=== PATIENT | female | born 1940 | race Two or more races ===

== ENCOUNTER 2017-04-12 05:44 | Inpatient (IN) | payer OTHER, MEDICARE ==
[~2017-04-12] VITALS: Ht 154.9 cm; Wt 81.2 kg
--- NOTE | 2017-04-12 09:35 | NUR ---
JULIO GATICA RECEIVED PATIENT IN ROOM 306-2. PATIENT TRANSFERRED FROM [facility] VIA AMBULANCE. PATIENT ADMITTED FOR SEPSIS. PATIENT DENIES SOB. PATIENT DENIES CP. PATIENT HAS MILD FEVER 99.9. BP 139/83, HR 101, RR 20, O2 98% ON ROOM 2L NC. IV ACCESS IN THE LEFT FOREARM. PATENT AND INTACT. F/C IN PLACE DRAINING CLOUDY YELLOW URINE. PATIENT DENIES ANY PAIN. RESPIRATIONS EVEN AND UNLABORED. NO ACUTE DISTRESS NOTED. BED LOCKED IN THE LOWEST POSITION WITH SIDE RAILS UP X2. HOB ELEVATED. CALL LIGHT WITHIN REACH. WILL CONTINUE TO MONITOR ASSESS AND EDUCATE PATIENT DURING SHIFT.
[2017-04-12 09:45] VITALS: BP 139/83
[2017-04-12 09:51] VITALS: BP 139/83
[2017-04-12 12:00] VITALS: BP 149/90
[2017-04-12] MEDS ORDERED: MAG HYDROX/AL HYDROX/SIMETH 30 ML UDC PO PRN (15:00)
[2017-04-12] MEDS ORDERED: HYDROCODONE/APAP 5/325MG 1 EACH TABLET PO PRN (15:00)
[2017-04-12] MEDS ORDERED: Z GUARD REMEDY 2 OZ OINT TP PRN (15:00)
[2017-04-12] MEDS ORDERED: MAGNESIUM HYDROXIDE 30 ML UDC PO PRN (15:00)
[2017-04-12] MEDS ORDERED: ONDANSETRON HCL/PF 4 MG/2 ML VIAL IVP PRN (15:00)
[2017-04-12] MEDS: IV NS 0.9% 1,000 ML IV PRN (15:43)
[2017-04-12 15:58] LABS: BASOPHILS % (AUTO) 0.5 % (0.0-2.0); EOSINOPHILS % (AUTO) 0.5 % (0.0-6.0); HEMATOCRIT 43 % (33-45); LYMPHOCYTES # (AUTO) 2.8 /CMM (0.8-4.8); LYMPHOCYTES % (AUTO) 30.8 % (20.0-44.0); MEAN CORPUSCULAR HEMOGLOBIN 28 PG (26.0-33.0); MEAN CORPUSCULAR HGB CONC 33 g/dl (31.0-36.0); MEAN CORPUSCULAR VOLUME 86 fL (82-100); MONOCYTES # (AUTO) 0.5 /CMM (0.1-1.30); MONOCYTES % (AUTO) 5.8 % (2.0-12.0); NEUTROPHILS # (AUTO) 5.6 /CMM (1.8-8.9); NEUTROPHILS % (AUTO) 62.4 % (43.0-81.0); PLATELET COUNT (AUTO) 203 /CMM (150-450); RED BLOOD CELL COUNT(AUTO) 4.98 MIL/uL (4.0-5.2)
[2017-04-12 16:00] VITALS: BP 132/71
[2017-04-12 16:33] LABS: CALCIUM, SERUM 8.9 mg/dL (8.5-10.1); CARBON DIOXIDE 28 mmol/L (21-32); CHLORIDE 100 mmol/L (98-107); CREATININE 0.6 mg/dL (0.6-1.3); GLUCOSE 127 mg/dL (74-106); POTASSIUM 3.7 mmol/L (3.5-5.1); SODIUM SERUM 137 mmol/L (136-145); UREA NITROGEN, BLOOD 6 mg/dL (7-18)
[2017-04-12 16:39] LABS: ALANINE AMINOTRANSFERASE 101 U/L (12-78); ALBUMIN 3.2 g/dL (3.4-5.0); ALKALINE PHOSPHATASE 102 U/L (46-116); ASPARTATE AMINOTRANSFERASE 103 U/L (15-37); BILIRUBIN,DIRECT 0.1 mg/dL (0.0-0.2); BILIRUBIN,TOTAL 0.5 mg/dL (0.2-1.0); MAGNESIUM 1.7 mg/dL (1.8-2.4)
[2017-04-12 16:47] LABS: THYROID STIMULATING HORMONE 1.907 uIU/mL (0.358-3.74)
[2017-04-12 17:30] LABS: INR 0.94 (0.87-1.13)
--- NOTE | 2017-04-12 19:30 | NUR ---
RN OPENING NOTES Receievd patient in bed, awake an alert, no apparent distress noted. Family at bedside, informed family and patient that she will have an ultrasound tonight on her right breast, patient and family agreed. Explained the procedure, verbalized understanding. No concerns at this time. Will continue to monitor.
--- NOTE | 2017-04-12 19:42 | NUR ---
RN CLOSING NOTES PATIENT RESTING COMFORTABLY WITH EYES CLOSED. PATIENT EASILY AROUSABLE. PATIENT IS KOREAN SPEAKING ONLY. TRANSLATION PROVIDED BY FAMILY. PATIENT IN NO ACUTE DISTRESS. PATIENT ON 2L SATURATING ADEQUATELY. RESPIRATIONS EVEN AND UNLABORED. ALL NEEDS MET DURING SHIFT. ALL MEDS GIVEN APPROPRIATE. WILL GIVEN REPORT TO NIGHT RN FOR CONTINUATION OF CARE.
[2017-04-12 20:00] VITALS: BP_SYST 122; BP_SYST 146; BP_DIAS 66; BP_DIAS 72
[2017-04-12] MEDS ORDERED: PIPERACILLIN /TAZOBACTAM 4.5 G in IV D5W 50 ML IV SCH (22:30)
[2017-04-13] VITALS: BP 128/76
[2017-04-13] MEDS: ACETAMINOPHEN 325 MG TABLET PO PRN ×3 (00:01→12:49)
[2017-04-13] MEDS ORDERED: PIPERACILLIN /TAZOBACTAM 2.25 G VIAL IV ONE (00:08)
[2017-04-13 04:00] VITALS: BP 122/66
--- NOTE | 2017-04-13 06:00 | NUR ---
RN CLOSING NOTES No significant change in condition. Patient slept comfortably. All due meds given as ordered, patient is compliant. Accucheck done, no s/s of hypo/hyperglycemia noted. Will continue to monitor.
[2017-04-13] MEDS: IV NS 0.9% 1,000 ML IV PRN ×2 (06:42→23:54)
--- NOTE | 2017-04-13 06:45 | NUR ---
RN CLOSING NOTES Patient is calm during shift, slept comfortably, no c/o pain or discomfort. Patient noted to be febrile, Tylenol 650 mg given as ordered, monitored temperature but patient continued to be febrile. Charge nurse made aware. Blood culture was done, urine specimen collected for urine culture, and MRSA swab done. Cold compress rendered. patient able to tolerate well. All due meds given, patient started on Zosyn IV. Tylenol given at around 0615 and temperature rechecked after 30 minutes, temp went down to 98.5. Endorsed. will continue to monitor. Report given to charge nurse.
--- NOTE | 2017-04-13 06:45 | NUR ---
RN CLOSING NOTES Patients
[2017-04-13 06:47] LABS: APPEARANCE,URINE CLEAR (CLEAR); BILIRUBIN,URINE NEGATIVE (NEGATIVE); BLOOD, URINE 1+ Ery/uL (NEGATIVE); COLOR,URINE YELLOW (YELLOW); KETONES,URINE NEGATIVE (NEGATIVE); LEUKOCYTE ESTERASE ,URINE NEGATIVE (NEGATIVE); NITRITE, URINE NEGATIVE (NEGATIVE); PROTEIN,URINE NEGATIVE (NEGATIVE); UGLUCOSE NEGATIVE (NEGATIVE); UROBILINOGEN,URINE 0.2 EU/dL (0.2)
[2017-04-13] MEDS: PANTOPRAZOLE 40 MG TABLET.DR PO SCH (06:51)
[2017-04-13 07:17] LABS: BASOPHILS % (AUTO) 0.3 % (0.0-2.0); EOSINOPHILS # (AUTO) 0.1 /CMM (0.0-0.7); EOSINOPHILS % (AUTO) 0.8 % (0.0-6.0); HEMATOCRIT 46 % (33-45); LYMPHOCYTES # (AUTO) 3.2 /CMM (0.8-4.8); LYMPHOCYTES % (AUTO) 34.7 % (20.0-44.0); MEAN CORPUSCULAR HEMOGLOBIN 28 PG (26.0-33.0); MEAN CORPUSCULAR HGB CONC 32 g/dl (31.0-36.0); MEAN CORPUSCULAR VOLUME 87 fL (82-100); MONOCYTES # (AUTO) 0.7 /CMM (0.1-1.30); MONOCYTES % (AUTO) 8.1 % (2.0-12.0); NEUTROPHILS # (AUTO) 5.2 /CMM (1.8-8.9); NEUTROPHILS % (AUTO) 56.1 % (43.0-81.0); PLATELET COUNT (AUTO) 191 /CMM (150-450); RDW COEFFICIENT OF VARIATION 13.7 (11.5-15.0); RED BLOOD CELL COUNT(AUTO) 5.34 MIL/uL (4.0-5.2); WHITE BLOOD COUNT (AUTO) 9.2 K/uL (4.3-11.0)
[2017-04-13 07:36] LABS: CALCIUM, SERUM 8.8 mg/dL (8.5-10.1); CARBON DIOXIDE 30 mmol/L (21-32); CHLORIDE 101 mmol/L (98-107); CREATININE 0.7 mg/dL (0.6-1.3); GLUCOSE 153 mg/dL (74-106); MAGNESIUM 1.9 mg/dL (1.8-2.4); PHOSPHORUS 3.7 mg/dL (2.5-4.9); POTASSIUM 4.1 mmol/L (3.5-5.1); SODIUM SERUM 138 mmol/L (136-145); UREA NITROGEN, BLOOD 7 mg/dL (7-18)
--- NOTE | 2017-04-13 07:51 | NUR ---
RN OPENING NOTES RECEIVED PATIENT RESTING COMFORTABLY IN BED WITH EYES OPEN. PATIENT IS AOX1 SLOVENIAN SPEAKING. NO ACUTE DISTRESS NOTED. RESPIRATIONS APPEAR EVEN AND UNLABORED. PATIENT SATURATING ADEQUATELY WITH NC @ 2L. IV ACCESS ON LFA 20G WITH NS RUNNING @ 75 ML/HR. F/C IN PLACE DRAINING CLEAR YELLOW URINE. BED LOCKED IN THE LOWEST POSITION WITH SIDE RAILS UP X2. CALL LIGHT WITHIN REACH. WILL CONTINUE TO MONITOR, ASSESS AND EDUCATE PATIENT THROUGHOUT SHIFT.
[2017-04-13 07:55] LABS: BACTERIA,URINE None seen /HPF (None Seen); SQUAMOUS EPITHELIAL CELL,UR Few /HPF (None Seen); WBC,URINE NONE SEEN /HPF (0-3)
[2017-04-13 08:00] VITALS: BP 128/69
[2017-04-13] MEDS: PIPERACILLIN /TAZOBACTAM 3.375 G in IV D5W 50 ML IV SCH ×3 (09:03→18:56)
--- NOTE | 2017-04-13 12:53 | NUR ---
RN NOTES PATIENT RUNNING FEVER. COOLING MEASURES IMPLEMENTED. TYLENOL GIVEN. ICE PACKS PLACED.
--- NOTE | 2017-04-13 15:58 | NUR ---
RN NOTES PATIENT TEMPERATURE RECHECKED. TEMPERATURE 100.9. DR. JESUS AWARE. ORDERS GIVEN FOR STAT BLOOD CULTURES. WILL CARRY OUT ORDERS. WILL CONTINUE TO IMPLEMENT COOLING MEASURES.
[2017-04-13 16:00] VITALS: BP 139/78
[2017-04-13] MEDS ORDERED: ACETYLCYSTEINE 10% 3,000 MG/30 ML VIAL PO ONE (16:30)
--- NOTE | 2017-04-13 17:53 | NUR ---
RN NOTES REQUEST FOR DR. JESUS TO HAVE PATIENT ON ACCUCHECK AND INSULIN FOR PATIENT DIABETES. MD TO FULFILL REQUEST.
--- NOTE | 2017-04-13 18:00 | NUR ---
RN NOTES CONSENT FOR CT ABDOMEN, CHEST AND PELVIS WITH AND WITHOUT CONTRAST WAS SIGNWED BY DAUGHTER AND PLACED IN CHART. PATIENT AND FAMILY AWARE OF PROCEDURE TOMORROW. PATIENT TO NPO AFTER MIDNIGHT.
--- NOTE | 2017-04-13 19:23 | NUR ---
RN CLOSING NOTES PATIENT IN STABLE CONDITION. PATIENT ON NC 2L SATURATING ADEQUATELY. PATIENT DENIES CP. DENIES PAIN. DENIES SOB. PATIENT TO HAVE PROCEDURE TOMORROW. CONSENT SIGNED. ALL NEEDS MET. ALL MEDS GIVEN APPROPRIATE. COOLING MEASURES IMPLEMENTED. PATIENT PLAN OF CARE DISCUSSED WITH MD. FAMILY AWARE. PATIENT TO BE NPO AFTER MIDNIGHT. RESPIRATION EVEN AND UNLABORED. NO ACUTE DISTRESS NOTED. WILL ENDORSE TO NIGHT RN FOR ALESSANDRA.
--- NOTE | 2017-04-13 19:45 | NUR ---
MS GYPSY INITIAL NOTES SEEN PT AFTER GOT REPORT FROM AM NURSE. PT STILL EATING WITH THE HELPED OF HER DAUGHTER , EDUCATE HER REGARDING ASPIRATION PRECAUTION. PT ON SITTING POSITION AND FEEDING HER SLOWLY . PT ATE WELL NO ASPIRATION NOTED AT THIS TIME, FAMILY ALSO AWARE THAT PT NPO BY 12 MN BECAUSE OF HER CT TEST CECELIA, CONSENT SIGNED. IVF NS AT 75 ML/HR ON HER LEFT FOREARM PATENT AND INTACT. PLACE ON ARM SLEEVE TO PROTECT PT FROM PULLING OUT, FAMILY AWARE. JORGE TO GRAVITY WITH CLEAR YELLOW OUTPUT NOTED. KEPT HER WARM AND COMFORTABLE AT ALL TIMES. BED ALARM SET FOR PT SAFETY.
[2017-04-13 20:00] VITALS: BP 155/80
--- NOTE | 2017-04-14 | NUR ---
MS DENTAL RECEPTIONIST NOTES CHECKED PT SHE'S SLEEPING COMFORTABLY IN BED WITHOUT ANY ACUTE DISTRESS NOTED. ZOSYN IVP ABG HUNG BY NURSE BRIDGER ORDERED. KEPT HER WARM AND COMFORTABLE AT ALL TIMES. WILL CONTINUE TO MONITOR.
[2017-04-14] MEDS: PIPERACILLIN /TAZOBACTAM 3.375 G in IV D5W 50 ML IV SCH ×5 (00:07→23:14)
--- NOTE | 2017-04-14 07:09 | NUR ---
MS PATTERN ROOM ATTENDANT CLOSING NOTES PT AWAKE AND QUIET WITH IVF STILL INFUSING. STABLE ADRIAN THE NIGHT AND SLEPT WELL. NO SIGNS OF ANY ACUTE DISTRESS NOTED THE ENTIRE SHIFT. RESPIRATION EVEN AND NON-LABORED,. MORNING CARE ALSO DONE. ALL DUE MEDS GIVEN AND ALL NEEDS MET. KEPT HER WARM AND COMFORTABLE AT ALL TIMES. BED ALARM SET FOR SAFETY. ENDORSE TO AM NURSE FOR CONTINUITY OF CARE. CALL LIGHT AT REACH.
[2017-04-14 07:10] LABS: BASOPHILS % (AUTO) 0.5 % (0.0-2.0); EOSINOPHILS # (AUTO) 0.1 /CMM (0.0-0.7); EOSINOPHILS % (AUTO) 0.8 % (0.0-6.0); HEMATOCRIT 38 % (33-45); HEMOGLOBIN 12.5 g/dL (11.5-14.8); LYMPHOCYTES # (AUTO) 3.1 /CMM (0.8-4.8); LYMPHOCYTES % (AUTO) 31.3 % (20.0-44.0); MEAN CORPUSCULAR HEMOGLOBIN 28 PG (26.0-33.0); MEAN CORPUSCULAR HGB CONC 33 g/dl (31.0-36.0); MEAN CORPUSCULAR VOLUME 86 fL (82-100); MONOCYTES # (AUTO) 0.7 /CMM (0.1-1.30); MONOCYTES % (AUTO) 7.5 % (2.0-12.0); NEUTROPHILS # (AUTO) 5.9 /CMM (1.8-8.9); NEUTROPHILS % (AUTO) 59.9 % (43.0-81.0); PLATELET COUNT (AUTO) 222 /CMM (150-450); RDW COEFFICIENT OF VARIATION 13.7 (11.5-15.0); RED BLOOD CELL COUNT(AUTO) 4.41 MIL/uL (4.0-5.2); WHITE BLOOD COUNT (AUTO) 9.9 K/uL (4.3-11.0)
[2017-04-14 07:24] LABS: CARBON DIOXIDE 29 mmol/L (21-32); CHLORIDE 98 mmol/L (98-107); CREATININE 0.7 mg/dL (0.6-1.3); GLUCOSE 176 mg/dL (74-106); IRON, SERUM 64 ug/dl (50-175); MAGNESIUM 1.7 mg/dL (1.8-2.4); PHOSPHORUS 2.8 mg/dL (2.5-4.9); POTASSIUM 3.9 mmol/L (3.5-5.1); SODIUM SERUM 132 mmol/L (136-145); TOTAL IRON BINDING CAPACITY 268 ug/dl (250-450); UREA NITROGEN, BLOOD 9 mg/dL (7-18)
[2017-04-14 07:34] LABS: FERRITIN 67 ng/mL (8-388)
--- NOTE | 2017-04-14 07:58 | NUR ---
MS/RN OPENING NOTE PATIENT RECEIVED IN BED, AWAKE IN STABLE CONDITION. ALERT AND ORIENTED TIMES 1. NON VERBAL. URDU UNDERSTANDING. NO SIGNS OF ACUTE DISTRESS. NO COMPLAIN OF PAIN OR DISCOMFORT. PATIENT NPO SECONDARY TO CT OF ABDOMEN TODAY. ALL NEEDS ATTENDED TO. CALL LIGHT WITHIN REACH. WILL CONTINUE TO MONITOR TO ENSURE SAFETY.
[2017-04-14 08:00] VITALS: BP 124/79
[2017-04-14] MEDS ORDERED: IOHEXOL-300 100 ML VIAL IV ONE ×4 (08:14)
[2017-04-14] MEDS ORDERED: IV NS 0.9% 250 ML IV ONE ×4 (08:14)
[2017-04-14] MEDS ORDERED: CT SWABBABLE VALVE TRANS SET 1 EA INFUS.SET MC ONE ×4 (08:14)
[2017-04-14] MEDS: PANTOPRAZOLE 40 MG TABLET.DR PO SCH (08:43)
[2017-04-14] MEDS: ACETAMINOPHEN 325 MG TABLET PO PRN ×3 (08:50→22:55)
[2017-04-14] MEDS: Magnesium 1GM/D5W 100ML PREMIX 100 ML IV SCH ×3 (11:43→13:54)
[2017-04-14] MEDS ORDERED: ACYCLOVIR IV 1 GM in IV D5W 250 ML IV SCH (14:00)
[2017-04-14] MEDS ORDERED: FEE PK DOSING 1 MIN EA MC ONE (15:06)
[2017-04-14 16:00] VITALS: BP 116/68
[2017-04-14] MEDS: ACYCLOVIR IV 500 MG in IV D5W 100 ML IV SCH (16:46)
--- NOTE | 2017-04-14 17:38 | NUR ---
MS/RN ORDERS FROM DR MONREAL RECEIVED NEW ORDERS FROM DR JESUS FOR AMMONIA, HEP LEVEL IN AM. START ON LACTULOSE 30ML PO BID.
[2017-04-14] MEDS: LACTULOSE 10 G/15 ML UDC (PYXIS) PO SCH (17:53)
--- NOTE | 2017-04-14 18:44 | NUR ---
MS/RN CLOSING NOTE PATIENT IN BED, AWAKE IN STABLE CONDITION. ALERT AND ORIENTED TIMES 2. MOZ[place] SPEAKING AND UNDERSTANDING. ANSWER SIMPLE QUESTIONS IN [place]. NO SIGNS OF ACUTE DISTRESS. NO COMPLAIN OF PAIN OR DISCOMFORT. ALL NEEDS ATTENDED TO. CALL LIGHT WITHIN REACH. WILL ENDORSE TO NEXT SHIFT FOR CONTINUITY OF CARE.
[2017-04-14] MEDS: VANCOMYCIN 1 GM in IV D5W 250 ML IV SCH (18:52)
--- NOTE | 2017-04-14 19:30 | NUR ---
MS RN OPENING NOTES: PATIENT IN BED, AOX1, ON O2 AT 2 LPM VIA NC, BREATHING EVEN AND UNLABORED. BREATH SOUNDS CLEAR TO AUSCULTATION. APPEARS CALM AND IN NO DISTRESS, WHEN ASKED IF SHE HAS PAIN (FAMILY AT BEDSIDE TO HELP TRANSLATE), SHE SHOOK HER HEAD. PATIENT HAS PIV OVER LFA G 20 INTACT AND INFUSING WELL WITH NS RUNNING AT 75 ML/HR. JORGE CATHETER IN PLACE DRAINING CLEAR YELLOW URINE. PROVIDED FOR COMFORT AND SAFETY, BED IN LOWEST NAD LOCKED POSITION, SIDERAILS UPX3, BED ALARMS ON. WILL CONT TO MONITOR.
[2017-04-14 19:55] VITALS: BP 102/60
[2017-04-14 20:00] VITALS: BP 102/60
[2017-04-14] MEDS: IV NS 0.9% 1,000 ML IV PRN (21:28)
[2017-04-14 23:00] VITALS: BP 113/71
--- NOTE | 2017-04-14 23:00 | NUR ---
RN NOTES: RECHECKED PATIENT'S TEMP AT 100.7. ADMINISTERED TYLENOL 650 MG PO. COOLING MEASURES DONE. WILL CONT TO MONITOR.
--- NOTE | 2017-04-15 00:30 | NUR ---
RN NOTES: INFORMED DR STOUT THAT PATIENT HAS BEEN FEBRILE THIS EVENING, AND THAT BLOOD CULTURES HAVE SO FAR BEEN NEGATIVE. LAST LACTIC ACID WAS 04/12 AT 1.3 AND THAT PATIENT IS ON IVF OF NS RUNNING AT 75 ML/HR. ORDER GIVEN FOR REPEAT LACTIC ACID IN THE AM. NOTED AND CARRIED OUT.
[2017-04-15] MEDS: ACYCLOVIR IV 500 MG in IV D5W 100 ML IV SCH ×3 (00:42→16:51)
[2017-04-15 05:00] VITALS: BP 123/75
[2017-04-15] MEDS: ACETAMINOPHEN 325 MG TABLET PO PRN ×2 (05:07→16:52)
[2017-04-15] MEDS: PIPERACILLIN /TAZOBACTAM 3.375 G in IV D5W 50 ML IV SCH ×4 (05:16→17:54)
[2017-04-15 06:31] LABS: BASOPHILS % (AUTO) 0.3 % (0.0-2.0); EOSINOPHILS # (AUTO) 0.3 /CMM (0.0-0.7); EOSINOPHILS % (AUTO) 2.5 % (0.0-6.0); HEMATOCRIT 38 % (33-45); HEMOGLOBIN 12.4 g/dL (11.5-14.8); LYMPHOCYTES # (AUTO) 2.7 /CMM (0.8-4.8); MEAN CORPUSCULAR HEMOGLOBIN 29 PG (26.0-33.0); MEAN CORPUSCULAR HGB CONC 33 g/dl (31.0-36.0); MEAN CORPUSCULAR VOLUME 86 fL (82-100); MONOCYTES # (AUTO) 0.7 /CMM (0.1-1.30); NEUTROPHILS # (AUTO) 6.7 /CMM (1.8-8.9); NEUTROPHILS % (AUTO) 64.2 % (43.0-81.0); PLATELET COUNT (AUTO) 238 /CMM (150-450); RDW COEFFICIENT OF VARIATION 13.7 (11.5-15.0); RED BLOOD CELL COUNT(AUTO) 4.35 MIL/uL (4.0-5.2); WHITE BLOOD COUNT (AUTO) 10.4 K/uL (4.3-11.0)
[2017-04-15 06:43] LABS: CALCIUM, SERUM 8.1 mg/dL (8.5-10.1); CARBON DIOXIDE 33 mmol/L (21-32); CHLORIDE 100 mmol/L (98-107); CREATININE 0.7 mg/dL (0.6-1.3); GLUCOSE 189 mg/dL (74-106); PHOSPHORUS 3.2 mg/dL (2.5-4.9); POTASSIUM 3.9 mmol/L (3.5-5.1); SODIUM SERUM 136 mmol/L (136-145); UREA NITROGEN, BLOOD 11 mg/dL (7-18)
[2017-04-15 06:52] LABS: SERUM AMMONIA 19 umol/L (11-32)
--- NOTE | 2017-04-15 07:20 | NUR ---
RN OPEN NOTES RECEIVED REPORT FROM HEAD SETTER NURSE. PATIENT IS IN BED WITH HER EYES CLOSED. EASILY AROUSED TO LIGHT TOUCH. BED IN LOW POSITION, LOCKED AND TWO SIDE RAILS ARE UP. WILL CONTINUE TO ASSESS AND MONITOR PATIENT.
--- NOTE | 2017-04-15 07:30 | NUR ---
MS RN CLOSING NOTES: PATIENT IN BED, AOX1, ON O2 AT 2 LPM VIA NC, BREATHING EVEN AND UNLABORED. PIV OVER LFA G20 INTACT AND INFUSING WELL WITH NS RUNNING AT 75 ML/HR. PROVIDED FOR COMFORT AND SAFETY. DUE MEDS GIVEN. PATIENT STILL FEBRILE, TYLENOL GIVEN Q 6 HRS. COOLING MEASURES DONE. MORNING CARE DONE. PROVIDED FOR COMFORT AND SAFETY. BED IN LOWEST AND LOCKED POSITION, SIDERAILS UPX3. ENDORSED TO AM RN FOR ALESSANDRA.
[2017-04-15 08:00] VITALS: BP 113/91
[2017-04-15] MEDS: LACTULOSE 10 G/15 ML UDC (PYXIS) PO SCH ×2 (09:04→16:51)
[2017-04-15] MEDS: PANTOPRAZOLE 40 MG TABLET.DR PO SCH (09:04)
[2017-04-15] MEDS: VANCOMYCIN 1 GM in IV D5W 250 ML IV SCH (11:08)
[2017-04-15] MEDS ORDERED: DEXTROSE 50%-WATER 50 ML DISP.SYRIN IV PRN (12:30)
[2017-04-15] MEDS ORDERED: SITA1TAB6 PO (12:51)
--- NOTE | 2017-04-15 13:03 | NUR ---
BLOOD SUGAR CHECKED = 303 [facility]ARMACY NOTIFIED TO SEND UP INSULIN JAVIER
[2017-04-15] MEDS: BLOOD SUGAR DIAGNOSTIC 1 EACH STRIP IN SCH ×3 (13:09→22:10)
[2017-04-15] MEDS: INSULIN REGULAR, HUMAN 100 UNIT/ML 3 ML VIAL SQ PRN ×3 (13:59→22:15)
--- NOTE | 2017-04-15 14:15 | NUR ---
DR JESUS AT BEDSIDE
--- NOTE | 2017-04-15 15:25 | NUR ---
DR BRIGHT, ID WILL NOT SEE THE PATIENT. ELSA ORDAZ WILL. DR JESUS MADE AWARE
[2017-04-15 16:00] VITALS: BP 147/82
[2017-04-15] MEDS: IV NS 0.9% 1,000 ML IV PRN (17:53)
--- NOTE | 2017-04-15 18:28 | NUR ---
RN CLOSING NOTES PATIENT IN BED, ALERT AND ORIENTED TO SELF ONLY. NON VERBAL. FAMILY AT BEDSIDE. O2 AT 2 LPM VIA NC, BREATHING EVEN AND UNLABORED. IV SITE IS INTACT AND PATENT ON THE RIGHT FOREARM 22G, INFUSING WELL NS AT 75 ML/HR. ALL NURSING CARE PROVIDED FOR COMFORT AND SAFETY. DUE MEDS GIVEN. BED IN LOWEST AND LOCKED POSITION, TWO SIDE RAILS ARE UP AND CALL LIGHT WITHIN REACH. ID CONSULT (ELSA DIRECTOR STRATEGIC ACCOUNT MANAGEMENT) AND HEP PANEL IS PENDING. WILL ENDORSE TO NIGHT RN FOR ALESSANDRA.
--- NOTE | 2017-04-15 19:30 | NUR ---
MS RN OPENING NOTES: PATIENT IN BED, AOX1, ON O2 AT 2 LPM VIA NC, BREATHING EVEN AND UNLABORED. BREATH SOUNDS CLEAR TO AUSCULTATION. APPEARS CALM AND IN NO DISTRESS. PIV OVER RFA G22 INTACT AND INFUSING WELL WITH NS RUNNING AT 75 ML/HR. JORGE CATHETER DRAINIG CLEAR YELLOW URINE. PROVIDED FOR COMFORT AND SAFETY. BED IN LOWEST AND LOCKED POSITION, SIDERAILS UPX3. CALL LIGHT WITHIN REACH. WILL CONT TO MONITOR.
[2017-04-15 20:00] VITALS: BP 117/77
--- NOTE | 2017-04-15 20:01 | NUR ---
RN NOTES: DR ANDRE CARROLL AT BEDSIDE TO ASSESS PATIENT. DISCUSSED WITH FAMILY RE POSSIBLE BIOPSY. PER FAMILY, THEY WILL STILL CONSIDER IT. PER MD, PROCEDURE CAN BE DONE OUTPATIENT. OTHER QUESTIONS BY FAMILY ALSO ADDRESSED BY DR POWELL.
--- NOTE | 2017-04-15 20:21 | NUR ---
RN NOTES: ELSA TECHNICAL MANAGER AT BEDSIDE FOR ID CONSULTATION TO ASSESS PATIENT.
[2017-04-16 04:00] VITALS: BP 125/78
--- NOTE | 2017-04-16 04:07 | NUR ---
RN NOTES: PATIENT FEBRILE: TEMP: 100.0, HR: 105. ADMINISTERED TYLENOL 650 MG PO PRN AND CONTINUED WITH COOLING MEASURES.
[2017-04-16] MEDS: ACETAMINOPHEN 325 MG TABLET PO PRN ×2 (04:08→14:03)
[2017-04-16] MEDS: IV NS 0.9% 1,000 ML IV PRN ×2 (05:22→17:16)
[2017-04-16] MEDS: BLOOD SUGAR DIAGNOSTIC 1 EACH STRIP IN SCH ×4 (06:31→21:44)
[2017-04-16] MEDS: INSULIN REGULAR, HUMAN 100 UNIT/ML 3 ML VIAL SQ PRN ×4 (06:33→21:55)
--- NOTE | 2017-04-16 06:35 | NUR ---
MS RN CLOSING NOTES: PATIENT IN BED, AOX1, ON O2 AT 2 LPM VIA NC, BREATHING EVEN AND UNLABORED. APPEARS CALM AND IN NO DISTRESS. RECHECKED TEMP AT 98.2 OF THIS TIME. PIV OVER RFA G22 INTACT AND INFUSING WELL WITH NS RUNNING AT 75 ML/HR. BLOOD SUGAR CHECKED AT 184 MG/DL, ADMINISTERED 3 UNITS REGULAR INSULIN. JORGE CATHETER DRAINING CLEAR YELLOW URINE, DRAINED TOTAL OF 1650 CC. DUE MEDS GIVEN, PROVIDED FOR COMFORT AND SAFETY. BED IN LOWEST AND LOCKED POSITION, SIDERAILS UP X3. WILL ENDORSE TO AM RN FOR ALESSANDRA.
[2017-04-16 06:47] LABS: BASOPHILS % (AUTO) 0.3 % (0.0-2.0); EOSINOPHILS # (AUTO) 0.3 /CMM (0.0-0.7); EOSINOPHILS % (AUTO) 2.7 % (0.0-6.0); HEMATOCRIT 37 % (33-45); HEMOGLOBIN 12.2 g/dL (11.5-14.8); LYMPHOCYTES # (AUTO) 1.9 /CMM (0.8-4.8); LYMPHOCYTES % (AUTO) 18.6 % (20.0-44.0); MEAN CORPUSCULAR HEMOGLOBIN 29 PG (26.0-33.0); MEAN CORPUSCULAR HGB CONC 33 g/dl (31.0-36.0); MEAN CORPUSCULAR VOLUME 87 fL (82-100); MONOCYTES # (AUTO) 0.6 /CMM (0.1-1.30); MONOCYTES % (AUTO) 5.4 % (2.0-12.0); NEUTROPHILS # (AUTO) 7.5 /CMM (1.8-8.9); PLATELET COUNT (AUTO) 234 /CMM (150-450); RDW COEFFICIENT OF VARIATION 13.9 (11.5-15.0); RED BLOOD CELL COUNT(AUTO) 4.25 MIL/uL (4.0-5.2); WHITE BLOOD COUNT (AUTO) 10.3 K/uL (4.3-11.0)
--- NOTE | 2017-04-16 07:20 | NUR ---
MS RN OPENING NOTES: PATIENT RECEIVED AWAKE AND LYING @ MODERATE HIGH BACKREST IN BED IN NO ACUTE SIGNS OF DISTRESS. A/O X1. ON O2 @ 2 LPM VIA NC, BREATHING EVEN AND UNLABORED. IV ACCESS ON RFA G#22 INTACT AND PATENT WITH NS @ 75 ML/HR INFUSING WELL, NO SIGNS OF INFILTRATION NOTED. JORGE CATHETER IN PLACED AND DRAINING CLEAR YELLOW URINE. BED IN LOWEST AND LOCKED POSITION WITH SIDE-RAILS UP X3. CALL LIGHT WITHIN REACH. WILL CONTINUE TO MONITOR PT ACCORDINGLY.
[2017-04-16 07:24] LABS: CALCIUM, SERUM 8.2 mg/dL (8.5-10.1); CARBON DIOXIDE 33 mmol/L (21-32); CHLORIDE 100 mmol/L (98-107); CREATININE 0.6 mg/dL (0.6-1.3); GLUCOSE 168 mg/dL (74-106); MAGNESIUM 1.9 mg/dL (1.8-2.4); POTASSIUM 3.8 mmol/L (3.5-5.1); SODIUM SERUM 139 mmol/L (136-145); UREA NITROGEN, BLOOD 9 mg/dL (7-18)
[2017-04-16 08:00] VITALS: BP 136/68
[2017-04-16] MEDS: PANTOPRAZOLE 40 MG TABLET.DR PO SCH (08:18)
[2017-04-16] MEDS: LACTULOSE 10 G/15 ML UDC (PYXIS) PO SCH ×2 (08:25→17:05)
[2017-04-16 14:00] VITALS: BP 126/70
--- NOTE | 2017-04-16 15:09 | NUR ---
RN NOTES ORLIN MEJIA ASKED TO FOLLOW-UP FAMILY IF THEY HAVE ALREADY DECISION ALREADY IF THEY WANT BREAST BIOPSY TO BE DONE. DAUGHTER FAHEEM BROOKS CAME AND SAID THAT THEY DON'T WANT THE BIOPSY TO BE DONE. ORLIN JOHNSON MADE AWARE.
[2017-04-16 16:00] VITALS: BP_SYST 122; BP_SYST 124; BP_DIAS 65
--- NOTE | 2017-04-16 18:40 | NUR ---
MS RN CLOSING NOTES: PATIENT AWAKE AND RESTING IN BED WITH DAUGHTER AT BEDSIDE. HOB KEPT ELEVATED. A/O X1, FOLLOWS SIMPLE COMMANDS. NO SIGNIFICANT CHANGES NOTED THROUGHOUT THE DAY. REMAINS WITH INTERMITTENT LOW GRADE FEVER, LATEST TEMP WAS 98.7F. ON O2 @ 2 LPM VIA NC, BREATHING EVEN AND UNLABORED. IV ACCESS ON RFA G#22 INTACT AND PATENT WITH NS @ 75 ML/HR INFUSING WELL, NO SIGNS OF INFILTRATION NOTED. JORGE CATHETER IN PLACED AND DRAINING CLEAR YELLOW URINE, OUTPUT THIS TOUR= 1550ML. KEPT BED IN LOWEST AND LOCKED POSITION WITH SIDE-RAILS UP X3. CALL LIGHT WITHIN REACH. ALL NEEDS AND CARE PROVIDED WELL. WILL ENDORSED TO EXHIBIT DISPLAY REPRESENTATIVE NURSE FOR ALESSANDRA.
--- NOTE | 2017-04-16 19:30 | NUR ---
RN NOTES RECEIVED PT AWAKE, A/OX2, NON-VERBAL, FAMILY AT BEDSIDE, F/C DRAINING CLEAR YELLOW URINE, NO PAIN NOTED, NO SOB, CALL LIGHT WIHIN REACH, SIDERAILS UPX2 CONTINUE TO MONITOR
[2017-04-16 20:00] VITALS: BP 132/66
--- NOTE | 2017-04-16 22:00 | NUR ---
RN NOTES SNACK GIVEN
--- NOTE | 2017-04-16 23:45 | NUR ---
RN NOTES PT TEMP WENT DOWN TO 98.4
[2017-04-17] MEDS: IV NS 0.9% 1,000 ML IV PRN ×2 (05:45→21:56)
--- NOTE | 2017-04-17 06:41 | NUR ---
RN NOTES AWAKE, NO PAIN NOTED, NO SOB, , IV LINE PATENT NO REDNESS OR SWOLLEN, MORNING CARE RENDERED, PT. NEEDS ATTENDED. ENDORSED TO DAYSHIFT NURSE FOR CONTINUITY OF CARE
[2017-04-17] MEDS: BLOOD SUGAR DIAGNOSTIC 1 EACH STRIP IN SCH ×4 (06:54→22:00)
[2017-04-17] MEDS: INSULIN REGULAR, HUMAN 100 UNIT/ML 3 ML VIAL SQ PRN ×4 (06:55→22:05)
[2017-04-17 07:00] LABS: BASOPHILS % (AUTO) 0.2 % (0.0-2.0); EOSINOPHILS # (AUTO) 0.2 /CMM (0.0-0.7); EOSINOPHILS % (AUTO) 2.1 % (0.0-6.0); HEMATOCRIT 35 % (33-45); HEMOGLOBIN 11.6 g/dL (11.5-14.8); LYMPHOCYTES % (AUTO) 18.3 % (20.0-44.0); MEAN CORPUSCULAR HEMOGLOBIN 29 PG (26.0-33.0); MEAN CORPUSCULAR HGB CONC 33 g/dl (31.0-36.0); MEAN CORPUSCULAR VOLUME 87 fL (82-100); MONOCYTES # (AUTO) 0.5 /CMM (0.1-1.30); NEUTROPHILS # (AUTO) 8.1 /CMM (1.8-8.9); NEUTROPHILS % (AUTO) 74.4 % (43.0-81.0); PLATELET COUNT (AUTO) 234 /CMM (150-450); RED BLOOD CELL COUNT(AUTO) 4.07 MIL/uL (4.0-5.2); WHITE BLOOD COUNT (AUTO) 10.9 K/uL (4.3-11.0)
--- NOTE | 2017-04-17 07:13 | NUR ---
MS RN OPENING NOTES: RECEIVED PT AWAKE IN BED IN NO ACUTE SIGNS OF DISTRESS. HOB ELEVATED. A/O X1, NO SIGNS OF PAIN OR DISCOMFORTS OBSERVED. ON O2 @ 2 LPM VIA NC, BREATHING EVEN AND UNLABORED. IV ACCESS ON RFA G#22 INTACT AND PATENT WITH NS @ 75 ML/HR INFUSING WELL, NO SIGNS OF INFILTRATION NOTED. IFC IN PLACED WITH CLEAR YELLOW URINE NOTED AT URINARY BAG. BED IN LOWEST AND LOCKED POSITION WITH SIDE-RAILS UP X3. CALL LIGHT WITHIN REACH. WILL CONTINUE TO MONITOR PT ACCORDINGLY
[2017-04-17 07:26] LABS: CALCIUM, SERUM 8.1 mg/dL (8.5-10.1); CARBON DIOXIDE 33 mmol/L (21-32); CHLORIDE 102 mmol/L (98-107); CREATININE 0.6 mg/dL (0.6-1.3); GLUCOSE 199 mg/dL (74-106); MAGNESIUM 1.8 mg/dL (1.8-2.4); PHOSPHORUS 2.7 mg/dL (2.5-4.9); POTASSIUM 3.8 mmol/L (3.5-5.1); SODIUM SERUM 140 mmol/L (136-145); UREA NITROGEN, BLOOD 9 mg/dL (7-18)
[2017-04-17 08:00] VITALS: BP 141/73
[2017-04-17] MEDS: PANTOPRAZOLE 40 MG TABLET.DR PO SCH (08:05)
[2017-04-17] MEDS: LACTULOSE 10 G/15 ML UDC (PYXIS) PO SCH ×2 (08:06→17:50)
[2017-04-17 16:00] VITALS: BP 156/81
[2017-04-17] MEDS: ACETAMINOPHEN 325 MG TABLET PO PRN (17:50)
--- NOTE | 2017-04-17 18:23 | NUR ---
RN NOTES PATIENT NOTED WITH ELEVATED TEMP OF 100.1F @ 1745, COOLING MEASURES GIVEN. PRN TYLENOL 650MG GIVEN P.O. PT'S DAUGHTER AT BEDSIDE. WILL CONTINUE TO MONITOR.
--- NOTE | 2017-04-17 18:56 | NUR ---
MS RN CLOSING NOTES: PATIENT RESTING AT MODERATE HIGH BACKREST IN BED WITH DAUGHTER @ BEDSIDE. A/O X1-2 AND FOLLOWS SIMPLE COMMANDS. LATEST TEMP WAS 98.9F, MONITORING CONTINUES. ALL NEEDS AND CARE PROVIDED WELL. MAINTAINED ON O2 VIA N/C @ 2 LPM, BREATHING EVEN AND UNLABORED. HOB KEPT ELEVATED. IV ACCESS ON RFA INTACT AND PATENT WITH NS @ 75 ML/HR INFUSING WELL, NO SIGNS OF INFILTRATION NOTED. JORGE IN PLACED AND DRAINING CLEAR YELLOW URINE, OUTPUT THIS TOUR= 2600ML. KEPT BED IN LOWEST AND LOCKED POSITION WITH SIDE-RAILS UP X3. CALL LIGHT WITHIN REACH. ALL NEEDS AND CARE PROVIDED WELL. WILL ENDORSED TO MANAGER INFORMATION NURSE FOR ALESSANDRA.
[2017-04-17 20:00] VITALS: BP 127/74
--- NOTE | 2017-04-17 20:00 | NUR ---
MS RN NOTES PATIENT SLEEPING IN MODERATE HIGH NEELY POSITION. ON O2 AT 2LPM VIA NC. NO SOB, NO C/O PAIN, NO DISTRESS NOTED. IV ACCESS ON RFA INTACT PATENT, RUNNING WITH NS 75ML/HR WITH GOOD FLOW. JORGE CATH IN PLACE, FLOWING WITH CLEAR YELLOW URINE. BED IN LOW LOCKED POSITION. CALL LIGHT WITHIN REACH. COMFORTABLE IN BED. CONTINUING TO MONITOR.
--- NOTE | 2017-04-18 02:15 | NUR ---
MS RN NOTES PATIENT SLEEPING INTERMITTENTLY, BUT NO DISCOMFORT NOTED. ON O2 AT 2LMP VIA NC WITH O2SAT 97%. SKIN ASSESSMENT DONE. REPOSITIONED IN BED. KEPT CLEAN & DRY. WOUND CONSULT ORDERED PER MD. NOTED & CARRIED OUT. CALL LIGHT WITHIN REACH. OBSERVING CLOSELY.
[2017-04-18] MEDS ORDERED: Z GUARD REMEDY 4 OZ OINT TP ONE (06:20)
[2017-04-18] MEDS: BLOOD SUGAR DIAGNOSTIC 1 EACH STRIP IN SCH ×2 (06:37→12:24)
[2017-04-18] MEDS: INSULIN REGULAR, HUMAN 100 UNIT/ML 3 ML VIAL SQ PRN ×2 (06:38→12:23)
--- NOTE | 2017-04-18 06:55 | NUR ---
RN NOTES AWAKE, IV LINE PATENT, NO REDNESS OR SWOLLEN, F/C IN PLACE. LATEST TEMP 98.6, MORNING CARE RENDERED, SIDERAILS UPX2, PT. NEEDS ATTENDED. ENDORSED TO DAYSHIFT NURSE FOR CONTINUITY OF CARE
--- NOTE | 2017-04-18 07:53 | NUR ---
RN NOTES RECEIVED PT. PT IS STABLE AND RESTING IN BED. A/OX1. PT IS NON VERBAL UPPER SORBIAN SPEAKING ONLY, BUT DOES NOT APPEAR TO BE IN DISTRESS OR PAIN. NO S/S OF SOB. IV ACCESS LOCATED ON RIGHT FOREARM, 22G RUNNING NS AT 75 ML/HR. F/C PATENT, WITH 240 ML AT THE BEGINNING OF MY SHIFT. SAFETY MEASURES IN PLACE, CALL LIGHT WITHIN REACH. WILL CONTINUE TO MONITOR.
[2017-04-18 08:00] VITALS: BP 154/80
[2017-04-18 08:09] LABS: CALCIUM, SERUM 8.2 mg/dL (8.5-10.1); CARBON DIOXIDE 33 mmol/L (21-32); CHLORIDE 104 mmol/L (98-107); CREATININE 0.6 mg/dL (0.6-1.3); GLUCOSE 188 mg/dL (74-106); POTASSIUM 3.9 mmol/L (3.5-5.1); SODIUM SERUM 143 mmol/L (136-145); UREA NITROGEN, BLOOD 9 mg/dL (7-18)
[2017-04-18] MEDS: LACTULOSE 10 G/15 ML UDC (PYXIS) PO SCH (10:00)
[2017-04-18] MEDS: PANTOPRAZOLE 40 MG TABLET.DR PO SCH (10:00)
[2017-04-18 16:00] VITALS: BP 137/100
--- NOTE | 2017-04-18 16:57 | NUR ---
DISCHARGE NOTE PATIENT DISCHARGE TO HOME. ALL DISCHARGE INSTRUCTIONS AND EDUCATION GIVEN AND EXPLAINED TO PATIENT AND FAMILY. FAMILY VERBALIZED UNDERSTANDING. PT TO BE GIVEN F/U REFERRAL TO HOME HEALTH REQUESTED, CASE MANAGEMENT TO CALL PATIENT FAMILY ON 04/19/17. VSS, NO S/S OF DISTRESS OR SOB DURING DISCHARGE. JORGE CATHETER REMOVED. MD AWARE OF DISCHARGE. BELONGINGS LIST AND DISCHARGE PAPERWORK SIGNED BY PT, COPIES MADE. PT LEFT HOSPITAL WITH DAUGHTER AND GRANDDAUGHTER IN A PRIVATE CAR.
[2017-04-19 08:13] LABS: *WEST NILE VIRUS, IgG, SERUM Positive (Negative)
[2017-04-20 11:14] LABS: *WEST NILE VIRUS, IgM, SERUM Positive (Negative)
== END 2017-04-18 16:50 | disposition home health service (06) | DRG 720 ==
LOC: TELE 09:28 → MED 04-13 09:41
PROVIDERS: ADMIT Internal Medicine; ATTEND Internal Medicine
DX: A41.9 Sepsis, unspecified organism (principal); G92 Toxic encephalopathy; E46 Unspecified protein-calorie malnutrition; E72.20 Disorder of urea cycle metabolism, unspecified; E11.65 Type 2 diabetes mellitus with hyperglycemia; F03.90 Unspecified dementia, unspecified severity, without behavioral disturbance, psychotic disturbance, mood disturbance, and anxiety; D75.1 Secondary polycythemia; E88.09 Other disorders of plasma-protein metabolism, not elsewhere classified; C50.911 Malignant neoplasm of unspecified site of right female breast; K76.0 Fatty (change of) liver, not elsewhere classified; E83.51 Hypocalcemia; E66.01 Morbid (severe) obesity due to excess calories; E11.9 Type 2 diabetes mellitus without complications; E66.9 Obesity, unspecified; E78.5 Hyperlipidemia, unspecified; I10 Essential (primary) hypertension; K21.9 Gastro-esophageal reflux disease without esophagitis; Z68.33 Body mass index [BMI] 33.0-33.9, adult; N39.0 Urinary tract infection, site not specified; E86.0 Dehydration; N84.0 Polyp of corpus uteri; R74.0 Nonspecific elevation of levels of transaminase and lactic acid dehydrogenase [LDH]; I25.10 Atherosclerotic heart disease of native coronary artery without angina pectoris; R59.0 Localized enlarged lymph nodes
CPT/HCPCS: 36415; 70450-TC; 71010-TC; 71270-TC; 74178; 76642-TC; 76856-TC; 80048-TC; 80074; 80076-TC; 80202-TC; 81000-TC; 82140-TC; 82728-TC; 82962-TC; 83540-TC; 83605-TC; 83735-TC; 84100-TC; 84443-TC; 84484-TC; 85025-TC; 85610-TC; 86300; 86788; 86789; 87040-TC; 87081-TC; 87086-TC; 93307-TC; J0133; J1815; J2543; J3370; J3475; J7030; J7050; J7060; Q9967